=== PATIENT | female | born 1960 | race Caucasian/White ===

== ENCOUNTER 2020-06-25 06:50 | Outpatient (CLI) | payer BC ==
[2020-06-25 16:37] LABS: #Basophils 0.1 10x3/uL (0.0-0.2); #Eosinphils 0.2 10x3/uL (0.0-0.5); #Monocytes 0.6 10x3/uL (0.0-1.1); #Neutrophils 4.2 10x3/uL (1.5-8.4); %Basophils 0.7 % (0.0-2.0); %Eosinophils 2.5 % (0.0-6.0); %Lymphocytes 39.2 % (18.0-47.0); %Monocytes 7.1 % (0.0-10.0); %Neutrophils 50.3 % (40.0-75.0); Mean Corpuscular HGB CONC 32.8 G/DL (32.0-36.0); Mean Corpuscular Hemoglobin 29.1 PG (27.0-33.0); Mean Corpuscular Volume 88.8 fl (80.0-100.0); Platelet Count 258 10x3/uL (130-400); RBC Distribution Width 13.5 % (11.5-14.5); Red Blood Cell (RBC) Count 4.81 10x6/uL (3.90-5.20); White Blood Cell (WBC) Count 8.3 10x3/uL (4.5-11.0)
[2020-06-25 16:52] LABS: Anion Gap 14 mmol/L (10-20); BUN (Urea Nitrogen) 11 mg/dL (9.8-20.1); Calc. Creatinine Clearance 0 mL/min (70-130); Calcium 9.2 mg/dL (7.8-10.44); Carbon Dioxide 28 mmol/L (22-29); Chloride 105 mmol/L (98-107); Glucose 101 mg/dL (70-105); Potassium 3.7 mmol/L (3.5-5.1); Sodium 143 mmol/L (136-145)
[2020-06-26 02:12] LABS: SARS-CoV-2 MS2 Positive; SARS-CoV-2 N Gene Negative; SARS-CoV-2 S Gene Negative; SARS-CoV-2 by NAA Not Detected (NotDetected); SARS-CoV-2 orf1ab Negative
== END 2020-06-25 06:51 | disposition home or self-care (01) ==
LOC: LABBT 06:50
PROVIDERS: ATTEND Family Medicine
DX: Z01.818 Encounter for other preprocedural examination (principal); Z01.812 Encounter for preprocedural laboratory examination; M19.012 Primary osteoarthritis, left shoulder; M75.42 Impingement syndrome of left shoulder; Z20.828 Contact with and (suspected) exposure to other viral communicable diseases
CPT/HCPCS: 80048; 85025; 87635; 93005; 93010; U0003

== ENCOUNTER 2020-06-28 07:31 | Day surgery (SDC) | payer BC ==
[2020-06-27 10:25] VITALS: BMI 29.0
[2020-06-28] MEDS ORDERED: Midazolam HCl 2 mg/2 ml Vial ONE (08:12)
[2020-06-28] MEDS ORDERED: Fentanyl 100 MCG/2 ML VIAL ONE (08:12)
[2020-06-28] MEDS ORDERED: Lidocaine 1% w/Epinephrine 1:100K 20 ML VIAL ONE (10:00)
[2020-06-28] MEDS ORDERED: methylPREDNISolone Acetate 40 mg/ml Vial ONE (10:14)
[2020-06-28] MEDS ORDERED: Glycopyrrolate 0.2 MG/ML 5 ML SYRINGE ONE (11:03)
[2020-06-28] MEDS ORDERED: PROPOFOL 200 MG/20 ML VIAL ONE (11:03)
[2020-06-28] MEDS ORDERED: Ropivacaine 0.5% HCl/PF (150 MG/30 ML VIAL) ONE (11:03)
[2020-06-28] MEDS ORDERED: Lidocaine 1% PF 5 ML VIAL ONE (11:03)
[2020-06-28] MEDS ORDERED: PHENYLEPHRINE-NS 100 MCG/ML 10 ML SYRINGE ONE (11:03)
[2020-06-28] MEDS ORDERED: Ondansetron PF 4 MG/2 ML Vial ONE (11:03)
[2020-06-28] MEDS ORDERED: Ropivacaine 0.2% HCl/PF (40 MG/20 ML VIAL) ONE (11:03)
[2020-06-28] MEDS ORDERED: Rocuronium Bromide 10 MG/ML (10ML VIAL) ONE (11:03)
[2020-06-28] MEDS ORDERED: Promethazine HCl 25 MG/ML VIAL ONE (11:07)
[2020-06-28] MEDS ORDERED: Ropivacaine 0.2% 550 ML 550 ML NERVE BLCK SCH (11:30)
[2020-06-28] MEDS ORDERED: Ondansetron PF 4 MG/2 ML Vial IVP PRN (11:30)
[2020-06-28] MEDS ORDERED: Zolpidem Tartrate 5 MG TAB PO PRN (11:30)
[2020-06-28] MEDS ORDERED: Promethazine HCl 25 MG/ML VIAL IM PRN (11:30)
[2020-06-28] MEDS ORDERED: HYDROcodone/Acetaminophen 10/325 mg Tablet PO PRN ×2 (11:30)
[2020-06-28] MEDS ORDERED: traMADol HCl 50 MG TAB PO PRN ×2 (11:30)
--- NOTE | 2020-06-28 13:47 | OP ---
DATE OF PROCEDURE: 06/28/2020 PREOPERATIVE DIAGNOSES: 1. Degenerative labral tear. 2. Partial articular sided rotator cuff tear. 3. Synovitis. 4. Acromioclavicular joint degenerative joint disease. PROCEDURES PERFORMED: 1. Extensive debridement. 2. Distal clavicle resection. 3. Injection of large joint. MEDICAL IMAGING TECH: None. ANESTHESIA: Dr. Rick. ANA PAULAA The patient received an interscalene block. ESTIMATED BLOOD LOSS: Less than 30 mL. TOURNIQUET TIME: None. IMPLANTS: None. ANTIBIOTICS: Ancef 2 g. COMPLICATIONS: None. HISTORY OF PRESENT ILLNESS: Ms. Parekh is a 59-year-old female presents to me with pain since November and a specific injury. She is retired. Previous injection gave her some relief, but got worse, some nocturnal wakening. The patient had MRI showing a partial rotator cuff tear with impingement of the acromion, large bursitis, concern for occult tear. I discussed with her the risks and benefits of arthroscopic evaluation of rotator cuff with possible biceps tenodesis, distal clavicle resection. I assessed the risks and benefits of the procedure to include pain, scar, bleeding, infection, decreased range of motion and strength, continued pain despite surgical intervention, need for further surgeries, loss of life or limb. The patient understood risks and benefits of procedure and elected to proceed. DESCRIPTION OF PROCEDURE: Time-out was performed designating the patient's left upper extremity as the operative site based on site, consents, and marking. After time-out, the patient's left upper extremity was prepped and draped in a sterile fashion. She was placed in beach chair position with bony prominences well padded. A posterior working portal was placed and visualized within the joint. The glenoid and humerus had good articular cartilage, no significant changes, some degeneration of the anterior labrum. The biceps had a good insertion, no significant inflammation, had a good superior labral attachments. The patient had synovitis and inflamed synovium in the posterior aspect of the shoulder near the capsule. The subscapularis was intact. There was some partial articular sided tear which I debrided, but I could not pass the full thickness component inside, pulled the biceps through screw and saw no significant tearing or injury. Then, I moved subacromially, saw large amount of bursitis which we debrided. We debrided all the bursa off the cuff and probed the cuff for any signs of a full-thickness component which I could not find. I took down the patient's CA ligament, moved towards the distal clavicle, found the prominence of clavicle, which I used my shaver from the anterior portal and shaved down the distal clavicle creating about a 5 mm section looking from lateral and anterior to ensure that the clavicle had been excised. We went back and looked the cuff again just to ensure that I did not miss any full-thickness tear. We went back intra-articularly and injected 80 mg of Depo-Medrol for the synovitis to help her with pain. The patient will begin range of motion exercises today, will be sent home with pain medications. She will follow up with me in clinic in 2 weeks for suture removal. [facility] ID[facility] [id number] [id number]
== END 2020-06-28 13:45 | disposition home or self-care (01) ==
LOC: SDC 07:31
PROVIDERS: ATTEND Orthopaedic Surgery
PROC: 0RBK4ZZ Excision of Left Shoulder Joint, Percutaneous Endoscopic Approach (ICD-10-PCS; principal; 2020-06-28)
PROC: 0PBB4ZZ Excision of Left Clavicle, Percutaneous Endoscopic Approach (ICD-10-PCS; principal; 2020-06-28)
DX: M75.112 Incomplete rotator cuff tear or rupture of left shoulder, not specified as traumatic (principal); M65.812 Other synovitis and tenosynovitis, left shoulder; M19.012 Primary osteoarthritis, left shoulder; M75.42 Impingement syndrome of left shoulder; G89.18 Other acute postprocedural pain; I10 Essential (primary) hypertension; E11.9 Type 2 diabetes mellitus without complications; F17.210 Nicotine dependence, cigarettes, uncomplicated; Z79.899 Other long term (current) drug therapy
CPT/HCPCS: A4306; J0690; J2250; J2405; J2550; J2704; J2795; J2920; J3010